=== PATIENT | male | born 1955 | race Caucasian/White ===

== ENCOUNTER 2017-03-25 14:49 | Emergency (ER) | payer BC, OTHER ==
[~2017-03-25] VITALS: Ht 157.5 cm; Wt 80.7 kg
[2017-03-25] MEDS ORDERED: IBUP200C PO (15:03)
[2017-03-25] MEDS ORDERED: PLAV75TA38 PO (15:03)
[2017-03-25] MEDS ORDERED: ASPI81TA85 PO (15:03)
[2017-03-25] MEDS ORDERED: CARV3.12 PO (15:03)
[2017-03-25] MEDS ORDERED: LISI10TA4 PO (15:03)
[2017-03-25] MEDS ORDERED: NITROGLYCERIN 0.4 MG SUBL TABLET SL PRN (15:45)
[2017-03-25] MEDS ORDERED: ASPIRIN 81 MG CHEW TABLET PO ONE (15:45)
[2017-03-25 15:53] LABS: BASO % 0.4 % (0.0-1.0); EOS # 0.2 K/mm3 (0.0-0.50); LARGE UNSTAINED CELL # 0.2 K/mm3 (0.0-0.4); LARGE UNSTAINED CELL % 2.6 % (0.0-4.0); LYMPH # 2.2 K/mm3 (1.5-4.5); LYMPH % 23.1 % (24.0-44.0); MEAN CORPUSCULAR HEMOGLOBIN 29.3 pg (27.0-33.0); MEAN CORPUSCULAR HGB CONC 34.4 g/dl (32.0-36.5); MONO # 0.6 K/mm3 (0.0-0.8); MONO % 7.7 % (0.0-5.0); NEUTROPHILS # 5.4 K/mm3 (1.8-7.7); NEUTROPHILS % 64.2 % (36.0-66.0); PLATELET COUNT, AUTOMATED 241 k/mm3 (150-450); RED CELL DISTRIBUTION WIDTH 12.7 % (11.5-14.5); WHITE BLOOD COUNT 8.4 K/mm3 (4.0-10.0)
[2017-03-25 16:05] LABS: ALBUMIN 3.7 GM/DL (3.2-5.2); ALBUMIN/GLOBULIN RATIO 1.32 (1.00-1.93); ALKALINE PHOSPHATASE 65 U/L (45-117); ALT/SGPT 39 U/L (12-78); ANION GAP 7 MEQ/L (8-16); AST/SGOT 21 U/L (15-37); BILIRUBIN,DIRECT < 0.1 MG/DL (0.0-0.2); BILIRUBIN,TOTAL 0.3 MG/DL (0.2-1.0); BLOOD UREA NITROGEN 18 MG/DL (7-18); CALCIUM LEVEL 8.7 MG/DL (8.5-10.1); CARBON DIOXIDE LEVEL 28 MEQ/L (21-32); CHLORIDE LEVEL 103 MEQ/L (98-107); CREATININE FOR GFR 0.81 MG/DL (0.70-1.30); GLOMERULAR FILTRATION RATE > 60.0 (>56); GLUCOSE, FASTING 90 MG/DL (70-105); POTASSIUM SERUM 4.1 MEQ/L (3.5-5.1); SODIUM LEVEL 138 MEQ/L (136-145); TOTAL PROTEIN 6.5 GM/DL (6.4-8.2)
--- NOTE | 2017-03-25 16:21 | REP ---
Clinical: Chest pain . Comparison: None . Technique: PA and lateral. Findings: The mediastinum and cardiac silhouette are normal. The lung drew are clear and without acute consolidation, effusion, or pneumothorax. The skeletal structures are intact and normal. Impression: 1. No acute cardiopulmonary process. Signed by Adalberto Mathew MD 03/25/2017 04:13 P
[2017-03-25] MEDS ORDERED: ISOVUE-370 76% 100ML VIAL (Q9967) As Ordered ONE (16:26)
--- NOTE | 2017-03-25 16:49 | REP ---
Clinical: Acute chest pain. Technique: Axial contrast enhanced images from the thoracic inlet to the upper abdomen using 100 ml Isovue 370 intravenous contrast material with coronal and sagittal re-formations. Findings: Satisfactory enhancement of the pulmonary vasculature is achieved and no filling defects are identified to suggest pulmonary embolus. Thoracic aorta is normal caliber without aneurysm or dissection. Heart and pericardium are normal. Bilateral lung drew are well aerated and clear without acute pulmonary parenchymal consolidation or atelectasis. No nodule or mass lesion. No pleural effusion/reaction. No pneumothorax. No adenopathy. Impression: No evidence for pulmonary embolus. No acute pleuroparenchymal or mediastinal process. Signed by Adalberto Mathew MD 03/25/2017 04:41 P
[2017-03-25 22:17] VITALS: BP 101/77
--- NOTE | 2017-03-26 19:55 | ECGEPIP ---
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
--- NOTE | 2017-03-26 20:00 | ECGEPIP ---
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
== END 2017-03-25 22:23 | disposition home or self-care (01) ==
LOC: M ED 15:44
DX: R07.9 Chest pain, unspecified (principal); M54.9 Dorsalgia, unspecified; I25.10 Atherosclerotic heart disease of native coronary artery without angina pectoris; F17.200 Nicotine dependence, unspecified, uncomplicated; Z95.5 Presence of coronary angioplasty implant and graft; Z82.49 Family history of ischemic heart disease and other diseases of the circulatory system
CPT/HCPCS: 36415; 71020; 71275; 80048; 80076; 82550; 82553; 83690; 85025; 93005; 93041; 94760; 99285; Q9967

== ENCOUNTER 2021-05-21 13:32 | Emergency (ER) | payer BC, OTHER ==
[~2021-05-21] VITALS: Ht 157.5 cm; Wt 83.6 kg
[~2021-05-21 13:32] MED LIST: ASPI81TA86 PO; CARV3.12 PO; IBUP200C25 PO; LISI10TA22 PO; PLAV1TAB2 PO
[2021-05-21] MEDS ORDERED: ATOR1TAB21 PO (13:54)
[2021-05-21] MEDS ORDERED: METO1TAB32 PO (13:54)
[2021-05-21 14:18] LABS: BASO % 0.3 % (0.0-1.0); EOS # 0.1 10^3/uL (0.0-0.5); EOS % 0.5 % (0.0-3.0); HEMATOCRIT 44.1 % (42.0-52.0); HEMOGLOBIN 15.2 g/dl (13.5-17.5); LYMPH # 1.2 10^3/uL (1.5-5.0); LYMPH % 11.3 % (24.0-44.0); MEAN CORPUSCULAR HEMOGLOBIN 30.5 pg (27.0-33.0); MEAN CORPUSCULAR HGB CONC 34.5 g/dl (32.0-36.5); MEAN CORPUSCULAR VOLUME 88.4 fl (80.0-96.0); MONO # 0.9 10^3/uL (0.0-0.8); MONO % 8.2 % (2.0-8.0); NEUTROPHILS # 8.6 10^3/uL (1.5-8.5); NEUTROPHILS % 79.2 % (36.0-66.0); PLATELET COUNT, AUTOMATED 257 10^3/uL (150-450); RED BLOOD COUNT 4.99 10^6/uL (4.30-6.10); WHITE BLOOD COUNT 10.9 10^3/uL (4.0-10.0)
--- NOTE | 2021-05-21 14:21 | REP ---
INDICATION: CHEST PAIN. COMPARISON: Comparison chest x-ray March 25, 2017. TECHNIQUE: Portable upright AP chest radiograph. FINDINGS: The lungs are well inflated and free of infiltrate. Pleural angles are sharp. Heart size is normal. Pulmonary vasculature is not increased. EKG monitoring electrodes overlie the chest. No significant bony abnormality is seen. IMPRESSION: No active disease. <Electronically signed by Brandon Miller > 05/21/21 [id number]
[2021-05-21 14:47] LABS: BLOOD UREA NITROGEN 17 MG/DL (7-18); CARBON DIOXIDE LEVEL 27 MEQ/L (21-32); CHLORIDE LEVEL 108 MEQ/L (98-107); CK-MB VALUE MASS 1.6 NG/ML (<3.6); CPK CREATINE PHOSPHOKINASE 116 U/L (39-308); CREATININE FOR GFR 0.77 MG/DL (0.70-1.30); GLOMERULAR FILTRATION RATE > 60.0 (>49); GLUCOSE, FASTING 100 MG/DL (70-100); MB/CK RELATIVE INDEX 1.38 (< OR =4); POTASSIUM SERUM 4.1 MEQ/L (3.5-5.1); SODIUM LEVEL 139 MEQ/L (136-145); TROPONIN I < 0.02 NG/ML (< 0.10)
[2021-05-21] MEDS ORDERED: ISOVUE-370 76% 100ML VIAL As Ordered ONE (17:24)
[2021-05-21 18:09] VITALS: O2SAT 98
[2021-05-21] MEDS ORDERED: ASPIRIN 81 MG CHEW TABLET PO ONE (18:45)
--- NOTE | 2021-05-21 19:03 | REPVR ---
PROCEDURE INFORMATION: Exam: CTA Chest With Contrast Exam date and time: 05/21/2021 5:39 PM Age: 66 years old Clinical indication: Shortness of breath; Chest wall pain; Additional info: Chest pain SOB TECHNIQUE: Imaging protocol: Computed tomographic angiography of the chest with contrast. 3D rendering (Not supervised by radiologist): MIP and/or 3D reconstructed images were created by the technologist. Radiation optimization: All CT scans at this facility use at least one of these dose optimization techniques: automated exposure control; mA and/or kV adjustment per patient size (includes targeted exams where dose is matched to clinical indication); or iterative reconstruction. Contrast material: ISOVUE 370; Contrast volume: 75 ml; Contrast route: INTRAVENOUS (IV); COMPARISON: CT ANGIO CHEST 03/25/2017 4:31 PM FINDINGS: Pulmonary arteries: There is no evidence of filling defects within the pulmonary arterial circulation to suggest pulmonary embolism. Aorta: No aneurysmal dilatation of thoracic aorta or dissection. Minimal atherosclerosis. Lungs: No focal lung consolidation. Pleural spaces: No pleural effusion or pneumothorax. Heart: No cardiomegaly or pericardial effusion. Lymph nodes: No mediastinal or hilar lymphadenopathy. 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 Soft tissues: Unremarkable. Other findings: No significant findings in the upper abdomen. IMPRESSION: No evidence of pulmonary emboli or pneumonia. Electronically signed by: Bibi Orlando On 05/21/2021 19:02:46 PM
[2021-05-21 20:36] LABS: CK-MB VALUE MASS 1.5 NG/ML (<3.6); CPK CREATINE PHOSPHOKINASE 98 U/L (39-308); MB/CK RELATIVE INDEX 1.53 (< OR =4); TROPONIN I < 0.02 NG/ML (< 0.10)
[2021-05-21] MEDS ORDERED: predniSONE 20 MG TAB PO ONE (21:05)
[2021-05-21] MEDS ORDERED: PRED20TA PO (21:08)
[2021-05-21 21:45] VITALS: BP 120/69
--- NOTE | 2021-05-22 10:51 | ECGEPIP ---
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
--- NOTE | 2021-05-22 10:57 | ECGEPIP ---
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
== END 2021-05-21 22:04 | disposition home or self-care (01) ==
LOC: M ED 13:32
DX: R07.89 Other chest pain (principal); R06.02 Shortness of breath; I10 Essential (primary) hypertension; I25.10 Atherosclerotic heart disease of native coronary artery without angina pectoris; E78.5 Hyperlipidemia, unspecified; Z79.899 Other long term (current) drug therapy; Z79.82 Long term (current) use of aspirin; Z88.1 Allergy status to other antibiotic agents; Z88.2 Allergy status to sulfonamides; Z87.891 Personal history of nicotine dependence
CPT/HCPCS: 36415; 71045; 71275; 80048; 82550; 82553; 84484; 85025; 93005; 93041; 94760; 99285; J7512; Q9967